=== PATIENT | male | born 1960 | race Caucasian/White ===

== ENCOUNTER 2022-11-20 06:29 | Observation (INO) ==
--- NOTE | 2022-10-19 10:59 | PAT Medication Instructions ---
Medication Instructions Date of Service October 19, 2022 Home Medications amoxicillin 500 mg tablet 500 mg PO TID hydrochlorothiazide 12.5 mg tablet 12.5 mg PO QAM ibuprofen 800 mg tablet 800 mg PO Q6H PRN irbesartan 300 mg-hydrochlorothiazide 12.5 mg tablet 1 tab PO QAM rosuvastatin 5 mg tablet 5 mg PO QAM ASK your surgeon for instructions ibuprofen 800 mg tablet 800 mg PO Q6H PRN DO NOT take the morning of surgery hydrochlorothiazide 12.5 mg tablet 12.5 mg PO QAM irbesartan 300 mg-hydrochlorothiazide 12.5 mg tablet 1 tab PO QAM Take morning of surgery With a small sip of water, OTHERWISE NOTHING TO EAT OR DRINK AFTER MIDNIGHT: amoxicillin 500 mg tablet 500 mg PO TID rosuvastatin 5 mg tablet 5 mg PO QAM Take evening before surgery amoxicillin 500 mg tablet 500 mg PO TID Other Notes If you have any questions please call us at [phone] or [phone] or [phone] or [phone]
--- NOTE | 2022-10-23 13:26 | Anesthesiology Consultation ---
Date of Service October 23, 2022 Assessment & Plan (1) Encounter for pre-operative examination: - infected tooth: Pt states has completed Rx amoxicillin and states he notified surgeon's office. - Outpatient joint assessment: Patient is currently scheduled for inpatient pathway. If re-evaluated pending system levels during current pandemic/surgeon requests outpatient pathway, patient is not acceptable candidate for outpatient joint program from anesthesia standpoint. Chart Review Chart Review: Acceptable Risk for Surgery and Patient seen in Pre Admission Testing Teaching & Discussion Pre-Anesthesia Teaching/Discussion Notes: Instructed NPO after midnight before surgery, except medications with 15 cc of water. Medication instructions provided according to the PAT guidelines. History Surgery Operation Date: 11/20/22 09:35 Proposed Procedures p Left Total Knee Arthroplasty with Possible Short Tibial Stem - Tom Barber DO Height/Weight Height: 6 ft 1 in Weight: 154.221 kg Allergies Allergy/AdvReac Type Severity Reaction Status Date / Time sulfamethoxazole Allergy Rash Verified 10/18/22 16:05 [From Bactrim] trimethoprim [From Bactrim] Allergy Rash Verified 10/18/22 16:05 Medications Home Medications Medication Instructions Recorded Confirmed Last Taken hydrochlorothiazide 12.5 mg tablet 12.5 mg PO QAM 10/18/22 10/18/22 Unknown ibuprofen 800 mg tablet 800 mg PO Q6H PRN Pain 10/18/22 10/18/22 Unknown irbesartan 300 1 tab PO QAM 10/18/22 10/18/22 Unknown mg-hydrochlorothiazide 12.5 mg tablet rosuvastatin 5 mg tablet 5 mg PO QAM 10/18/22 10/18/22 Unknown Past Medical History Medical History (Updated 10/23/22 @ 13:40 by Lisy Silva PA-C) GERD (gastroesophageal reflux disease) rare, if eats late History of prostate cancer dx'd 2015. sx + radiation HLD (hyperlipidemia) HTN (hypertension) controlled, stable per pt Infected tooth reason for abx Morbid obesity with BMI of 40.0-44.9, adult Patient denies h/o stroke, seizures, heart attack, heart failure, DM, blood clots or blood transfusions. Exercise / Class Metabolic Activity II 4-5 Yardwork/Stairs/Walk up hill (denies chest discomfort or shortness of breath with 1 FOS) Past Family History Family History Other No family history of adverse response to anesthesia Past Surgical History Surgical History History of colonoscopy History of hydrocelectomy History of prostate biopsy History of prostatectomy History of umbilical hernia repair History of wisdom tooth extraction Past Anesthesia History No Hx of Anesthesia Complications and No Family Hx of Anesthesia Complications History of PONV No Hx of Motion Sickness and History of PONV (denies needing scop patch) Social History Smoking Status: Never smoker Do You Dip or Chew Tobacco: No Hx Alcohol Use: Yes alcohol intake frequency: a few times a month Hx Substance Use: No substance use type: does not use Review of Systems Snoring, denies witnessed apneas. Patient denies chest pain, shortness of breath, dyspnea on exertion, snoring, witnessed apneas, fever, chills, cough, wheezing, or palpitations. Physical Exam Vital Signs Vitals BP 159/79 P 57 TEMP 98.2 SP02 94% on RA RESP 18 Physical Full cervical extension range of motion without pain TMD 3.5 finger breadths Mallampati Score 2 Dentition: intact, denies chipped or loose teeth, caps/crowns, implants or bridges Lungs: normal respiratory effort. Clear throughout to auscultation, no adventitious breath sounds Cardiac: regular rate and rhythm, no murmurs noted Carotid arteries: negative bruit bilat Lab Results Anesthesia Preop Results Results Anesthesia Widget: WBC 6.25 K/ul (4.8-10.8) 10/23/22 Hgb 13.3 g/dl (14.0-18.0) L 10/23/22 Hct 37.8 % (40.1-51.0) L 10/23/22 Plt 224 K/uL (130-400) 10/23/22 Na 138 mmol/L (136-145) 10/23/22 K 3.8 mmol/L (3.5-5.1) 10/23/22 Cl 101 mmol/L (98-107) 10/23/22 CO2 32 mmol/L (21-32) 10/23/22 BUN 19 mg/dl (6-23) 10/23/22 Creat 0.94 mg/dl (0.6-1.4) 10/23/22 Glucose Level 119 mg/dl (70-99(Fasting)) H 10/23/22 PT 10.9 Seconds (9.0-12.0) 10/23/22 PTT 27.5 Seconds (21.0-31.0) 10/23/22 INR 1.0 (0.9-1.1) 10/23/22 HA1c 5.3 % (4.5-5.6) 10/23/22 Urine Color Yellow 10/23/22 Urine Appearance Clear (Clear) 10/23/22 Urine pH 5.5 (4.5-7.5) 10/23/22 Urine Specific Niland 1.017 (1.000-1.030) 10/23/22 Urine Protein Negative (Negative) 10/23/22 Urine Glucose (UA) Negative (Negative) 10/23/22 Urine Ketones Negative (Negative) 10/23/22 Urine Blood Negative (Negative) 10/23/22 Urine Nitrite Negative (Negative) 10/23/22 Urine Bilirubin Negative (Negative) 10/23/22 Urine Urobilinogen Negative (Negative) 10/23/22 Urine Leukocyte Esterase Negative (Negative) 10/23/22 Blood Type A Negative 10/23/22 Antibody Screen NEGATIVE 10/23/22 Testing Electrocardiogram Date: 10/23/22 Sinus bradycardia, rate 58 bpm Inferior infarct, age undetermined Chest X-Ray Date: 10/23/22 No acute chest disease. COVID-19 Risk Screen Screening Information COVID-19 Screen Date: 10/23/22 Exposure 21 Days Family/Household +COVID Last 21 Days: No Exposure 10 Days Any COVID Exposure Last 10 Days: No Symptoms Last 10 Days Experienced COVID Sx Last 10 Days: No + COVID 0-90 Days COVID + in Last 0-90 Days: No
--- NOTE | 2022-10-29 08:54 | History & Physical Report ---
Date of Service October 29, 2022 date of surgery: 11/20/22 Procedure: Left Total Knee Arthroplasty with Possible Short Tibial Stem Surgeon: Tom Barber Assessment & Plan (1) Arthritis of knee, left: Plan: Presents for evaluation of chronic bilateral knee pain, left greater than right. He has tried and failed prior viscosupplementation injections into his left knee, he is also tried oral anti-inflammatories and Tylenol. X-rays show advanced degenerative changes to the left knee. We discussed treatment options, His pain is now affecting his daily activities and like to proceed with surgical invention. Plan will be patient matched left total knee replacement with possible tibial stem at the hospital with overnight stay. Will place on aspirin 81 mg twice a day for 1 month postop. The risks and benefits have been discussed including, but not limited to, risk of infection, nerve injury, stiffness, loss of motion, failure to improve, etc. Reasonable outcomes and options of treatment were discussed. An explanation of appropriate alternatives to the procedure that may be advantageous were discussed and their risks and benefits, as well as the risks and benefits of not proceeding with treatment. I offered to answer any additional inquiries concerning the treatment involved. All the patient's questions were answered. The patient is agreeable, understanding of the treatment plan and alternatives, and wishes to proceed with the treatment plan. History of Present Illness Chief Complaint: left knee pain Primary Care Provider: Portillo Conteh MD Jason is a 62-year-old male presents for preop evaluation prior to his left total knee replacement. He has been having pain in that knee for many years now which is gradually worsened. he has complaints of pain, swelling and stiffness, He has tried and failed prior injections including corticosteroids and viscosupplementation without relief. He has tried oral anti-inflammatories and Tylenol as well. He rates his current pain as a 7 out of 10. At this point time is failed conservative measures and would like to proceed with surgical intervention Allergies Allergy/AdvReac Type Severity Reaction Status Date / Time sulfamethoxazole Allergy Rash Verified 10/18/22 16:05 [From Bactrim] trimethoprim [From Bactrim] Allergy Rash Verified 10/18/22 16:05 Home Medications Medication Instructions Recorded Confirmed Type hydrochlorothiazide 12.5 mg tablet 12.5 mg PO QAM 10/18/22 10/18/22 History ibuprofen 800 mg tablet 800 mg PO Q6H PRN Pain 10/18/22 10/18/22 History irbesartan 300 1 tab PO QAM 10/18/22 10/18/22 History mg-hydrochlorothiazide 12.5 mg tablet rosuvastatin 5 mg tablet 5 mg PO QAM 10/18/22 10/18/22 History Past Med/Surg History Medical History GERD (gastroesophageal reflux disease) rare, if eats late History of prostate cancer dx'd 2016. 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 Beliefs That Will Affect Care: None Current Living Situation: Spouse Feels Safe at Home: Yes Assistive Devices: Glasses Review of Systems Review of Systems: All systems reviewed & are unremarkable except as noted in HPI & below Constitutional: no fever, no chills and no sweats Respiratory: no cough and no dyspnea Cardiovascular: no chest pain, no dyspnea and no orthopnea Gastrointestinal: no abdominal pain, no nausea and no vomiting Musculoskeletal: as per Subjective / HPI Physical Exam Physical Exam: HT: 6ft 1in WT: 154.2kg Constitutional: WD/WN, vitals as above no acute distress Respiratory: normal respiratory effort, lungs clear to auscultation no respiratory distress, no labored breathing and does not use accessory muscles Cardiovascular: RRR, no murmur, no edema Gastrointestinal (Abdomen): normal bowel sounds, soft, nontender, no hepatosplenomegaly Musculoskeletal: Knee: + knee abnormal to inspection (Left Knee: ), + effusion (+1 effusion), + limited ROM of knee (ROM 0/3/110), + knee ROM with crepitation, + joint line tenderness (medial joint line) and + Edith's sign positive; no deformity, no skin erythema, no ecchymosis, no valgus laxity, no varus laxity, anterior drawer test negative, Maggie's sign negative and pivot shift test negative Results & Data Results & Data ([facility]) Diagnostic Findings 4 views left knee showing advanced DJD of the left knee, bone on bone changes, narrowing medial compartment an PF joint with osteophyte formation and subchondral sclerosis. no acute bony pathology noted. Assessment: DJD of the left knee
[~2022-11-20 06:29] MED LIST: ACETAMINOPHEN 500 MG TAB PO SCH; BUPIVACAINE 0.5 % 5 MG/1 ML PF 10ML VIAL ONE; CeleBREX 200 MG CAP PO SCH; FAMOTIDINE 20 MG TAB PO SCH; GABAPENTIN 600 MG DOSE PO SCH; LR 500ML BOLUS, THEN 15ML/HR IV SCH; METOCLOPRAMIDE HCL 10 MG TABLET PO SCH; ROPIVACAINE 0.5% 5 MG/ML 30 ML VIAL ONE; ROPIVACAINE 0.5% HCL/PF 150 MG, BUPIVACAINE 0.75% MPF 20 ML, EPINEPHrine 30MG/30ML (OR ... INSTIL SCH; TRANEXAMIC ACID 1,000 MG **IV Intra-op IV SCH; TRANEXAMIC ACID 1,000 MG **IV Pre-op IV SCH; dexAMETHasone 4 MG TAB PO SCH
[2022-11-20] MEDS ORDERED: MIDAZOLAM HCL 1 MG/ML 2ML VIAL ONE (06:56)
[2022-11-20] MEDS ORDERED: KETAMINE 50 MG/5 ML SYRINGE ONE (06:57)
--- NOTE | 2022-11-20 07:05 | History & Physical Bridge Note ---
Date of Service November 20, 2022 History & Physical Bridge Note I have examined the patient, reviewed the History & Physical and in the interval since the performance of the History & Physical I have noted the following changes of clinical significance: no changes noted
[2022-11-20] MEDS ORDERED: ORTHO JOINT ANESTHETIC ONE (07:23)
[2022-11-20] MEDS ORDERED: ONDANSETRON INJ 2 MG/ML 2 ML VIAL IV PRN ×2 (07:37→12:18)
[2022-11-20] MEDS ORDERED: fentaNYL citrate 100 MCG/2 ML VIAL IV PRN (07:37)
[2022-11-20] MEDS ORDERED: ePHEDrine sulfate 50 MG/ML AMP IV PRN (07:37)
[2022-11-20] MEDS ORDERED: ATROPINE SULFATE 0.1 MG/ML 10ML SYR IV PRN (07:37)
[2022-11-20] MEDS ORDERED: LIDOCAINE 2% MPF LOCAL 5 ML VIAL INFIL ONE (08:44)
[2022-11-20] MEDS ORDERED: PROPOFOL IV EMULSION 10 MG/ML 100 ML VIAL IV ONE (08:44)
[2022-11-20] MEDS ORDERED: ONDANSETRON INJ 2 MG/ML 2 ML VIAL ONE (08:44)
[2022-11-20] MEDS ORDERED: GLYCOPYRROLATE 0.2 MG/ML VIAL ONE (08:44)
[2022-11-20] MEDS ORDERED: PHENYLEPHRINE HCL 10 MG/ML VIAL ONE (09:13)
--- NOTE | 2022-11-20 10:01 | Operative Report ---
Post Operative Report Pre & Post Diagnosis Operation Date: 11/20/22 08:10 Pre-Op Diagnosis: Left Knee Osteoarthritis Post-Op Diagnosis: Left Knee Osteoarthritis I identified the patient and participated in the time-out.: Yes Procedure Operation Date: 11/20/22 08:10 Actual Procedures p Left Total Knee Arthroplasty with Possible Short Tibial Stem(Lef utilizing [employer] journey 2 patient matched femur 8 tibia 7 insert 13 patella 35 oval stem 1 tibia 10 x 70- Tom Barber DO Surgeon Tom Barber DO Patient Financial Representative ELLEN Oquendo Estimated Blood Loss 5 Findings Consistent with Post-Op Diagnosis Patient presents with severe end-stage tricompartmental DJD 7 degree flexion contracture varus alignment subchondral sclerosis marginal osteophytes eburnated [id number] with a large effusion Specimens Bone and cartilage Drains Medium bore Hemovac Anesthesia Type MAC Spinal Regional Complications none Disposition Accompanied Patient To Recovery: No Disposition: Recovery Room Indications Patient presents with severe end-stage tricompartmental degenerative joint disease nonresponse to conservative management the above intraoperative findings were noted patient failed attempted corticosteroid injection viscosupplementation relative rest activity modification. Description of Procedure After proper prepping and draping of the left lower extremity anterior midline incision was made over the region of the extensor extensor mechanism after meticulous hemostasis was obtained and maintained in subcutaneous tissues a medial parapatellar incision was made The patella was subluxed lateralward the medial lateral gutter were cleaned from any hypertrophic synovitis and scar tissue of the distal femoral block was placed and the distal femoral osteotomy cut was made subsequently the chamfers anterior and posterior osteotomy cuts were made utilizing the 4-in-1 block the tibia was subsequently subluxed anteriorward medial and ateral meniscal remnants were excised in their entirety remnants of the anterior and posterior cruciate ligaments were excised in their entirety excellent exposure of the proximal tibia was obtained the tibial osteotomy guide was placed on the proximal tibial osteotomy cut was made once again the knee was irrigated with copious amounts of sterile saline solution the patella was subsequently everted lateralward thickened scar tissue around the patella was removed the patella was subsequently cut utilizing a freehand technique and was drilled prepared for final preparation and placement of patella socially flexion-extension gaps were checked and the equal and symmetric trials were placed to the appropriate femoral and tibial trials with poly-spacer being placed for equal flexion and extension gaps and full range of motion including extension to 0 and flexion to 140 the trial components after having been taken to recovery range of motion was subsequently removed meticulous hemostasis was obtained and maintained subsequently a knee block injection of joint cocktail including ropivacaine 0.5% 150 mg. Bupivacaine 0.5% epinephrine 1-200,030 mL's toradol 30 mg dexamethasone 4 mg ketamine 10 mg clonidine 100 micrograms normal saline solution 30 mg was infiltrated into the soft tissues of the posterior knee medial lateral gutters and periosteal synovium special attention was paid to protect neurovascular structures at all times subsequently trial components having been removed the knee was irrigated with sterile saline solution. debris was removed the proximal tibia was subsequently prepared and was made ready for the placement of the tibial component tibial component was also cemented and tamped into position the femoral component was subsequently placed and cemented in the position the patellar component was subsequently cemented in position because hemostasis once again obtained and maintained wound having been thoroughly irrigated with debridement and debridement lavage was performed as well as a medial parapatellar incision closed with #1 Vicryl in interrupted fashion subcutaneous was closed with #2 Vicryl skin was closed with skin clips. PA-C was necessary for prepping and drapping as well as wound closure of deep fascia Sub cutaneous tissue and skin and was necessary for the case. A sterile compressive dressing was placed patient was taken to recovery in stable condition of report dictated by Sunil I attest to the content of the Intraoperative Record and any orders documented therein. Any exceptions are noted below.Due to the complex nature of the procedure, the entire surgery was performed with the operational assistance of ELLEN Oquendo. The marketing administrative assistant, under direct supervision, was involved in the actual performance of all aspects of the surgical procedure including hemostasis, tissue retraction and incision, instrument management, patient positioning, and wound closure. I attest to the content of the Intraoperative Record and any orders documented therein. Any exceptions are noted below.
--- NOTE | 2022-11-20 11:12 | XRay Report ---
XR knee LT 1 or 2V routine CLINICAL HISTORY: Surgical Post Op COMPARISON: None FINDINGS: Alignment of the total left knee arthroplasty is anatomic. There is no periprosthetic frac ture or unexpected radiopaque foreign body. There are surgical drains. Incidental 1.5 cm linear radio density within the medial left lower leg is present. This is likely old. IMPRESSION: Expected findings following total left knee arthroplasty. ACT 112: Negative or not required by law. Electronically signed by: Abraham Blackwell M.D. 11/20/2022 11:11 AMa
[2022-11-20] MEDS ORDERED: MAGNESIUM HYDROXIDE SUSP 30 ML UDC PO PRN (12:18)
[2022-11-20] MEDS ORDERED: HYDROmorphone INJ 1 MG/ML SYRINGE IV PRN (12:18)
[2022-11-20] MEDS ORDERED: diphenhydrAMINE Capsule 25 MG CAP PO PRN (12:18)
[2022-11-20] MEDS ORDERED: bisacodyL 10 MG SUPP PR PRN (12:18)
[2022-11-20] MEDS ORDERED: NALOXONE HCL 0.4 MG/1 ML VIAL/CARP IV PRN (12:18)
[2022-11-20] MEDS ORDERED: SODIUM CHLORIDE 0.9% 1000ML 1,000 ML IV SCH (12:18)
[2022-11-20] MEDS ORDERED: METOCLOPRAMIDE HCL INJ 5 MG/ML 2 ML VIAL IV PRN (12:18)
[2022-11-20] MEDS ORDERED: oxyCODONE HCL IR 5 MG TAB (IMMEDIATE RELEASE) PO PRN (12:18)
[2022-11-20] MEDS: ACETAMINOPHEN 500 MG TAB PO SCH ×2 (13:27→20:18)
--- NOTE | 2022-11-20 14:00 | Anesthesiology Progress Note ---
Date of Service November 20, 2022 Anesthesia Post Procedure Vital Signs Vital Signs: Temp Pulse Resp BP Pulse Ox O2 Del Method O2 Flow Rate 11/20/22 13:15 98.1 F 64 18 137/84 93 Room Air 11/20/22 12:45 97.7 F 52 L 16 123/80 94 Room Air 11/20/22 12:15 97.7 F 65 16 133/84 95 Room Air 11/20/22 11:45 58 L 18 120/74 95 Nasal Cannula 2 11/20/22 11:35 97.2 F L 58 L 16 120/76 95 Nasal Cannula 2 11/20/22 11:25 55 L 15 120/69 95 Nasal Cannula 2 11/20/22 11:15 64 17 121/72 93 Nasal Cannula 2 11/20/22 11:05 69 15 125/71 91 Nasal Cannula 2 11/20/22 10:55 83 18 114/79 95 Nasal Cannula 2 11/20/22 10:45 79 18 121/78 95 Nasal Cannula 2 11/20/22 10:35 81 18 122/72 95 Oxymask 5 11/20/22 10:26 98.4 F 86 18 119/72 95 Oxymask 5 11/20/22 06:52 98.6 F 76 20 156/86 H 95 Room Air Pain Intensity Left Knee: Pain Intensity: 0 Transfer of Care Handoff Completed per policy Notes Mental Status: alert / awake / arousable and participated in evaluation Patient Amnestic to Procedure: Yes Nausea / Vomiting: adequately controlled Pain: adequately controlled Airway Patency, RR, SpO2: stable & adequate BP & HR: stable & adequate Hydration State: stable & adequate Neuraxial Anesthesia: was administered and sensory block is resolving Anesthetic Complications: no major complications apparent and Pt Satisfied with anesthetic care
[2022-11-20] MEDS: KETOROLAC 30 MG/ML VIAL IV SCH (17:53)
[2022-11-20] MEDS: ceFAZolin 2000MG 2,000 MG/15 ML SYR IV SCH (17:53)
[2022-11-20] MEDS: ASPIRIN 81 MG ECTAB PO SCH (20:17)
[2022-11-20] MEDS: DOCUSATE SODIUM 100 MG CAP PO SCH (20:17)
[2022-11-20] MEDS ORDERED: SENNA 8.6 MG TAB PO SCH (21:00)
[2022-11-21] MEDS: ceFAZolin 2000MG 2,000 MG/15 ML SYR IV SCH (00:06)
[2022-11-21] MEDS: KETOROLAC 30 MG/ML VIAL IV SCH ×2 (00:06→06:03)
[2022-11-21] MEDS: ACETAMINOPHEN 500 MG TAB PO SCH (06:03)
[2022-11-21 06:06] LABS: Hematocrit (blood only) 34.3 % (42.0-52.0); Hemoglobin 11.9 g/dl (14.0-18.0); Mean Corpuscular Hemoglobin 30.9 pg (25.0-34.0); Mean Corpuscular Hgb Conc 34.7 g/dL (32.0-36.0); Mean Corpuscular Volume 89.1 fL (80.0-100.0); Mean Platelet Volume 9.3 fL (9.4-12.4); Platelet Count 241 K/uL (130-400); RDW Coefficient of Variation 11.7 % (11.5-14.5); RDW Standard Deviation 37.2 fL (36.4-46.3); Red Blood Count 3.85 M/uL (4.70-6.10); White Blood Count 13.76 K/ul (4.8-10.8)
[2022-11-21 06:08] LABS: BUN Creatinine Ratio 23.9 (10-20); Calcium 8.8 mg/dl (8.5-10.1); Creatinine Clr Calc Pharmacy 101.8 ml/min; Est GFR (Non-African American) 66.4 ml/min; Potassium 4.5 mmol/L (3.5-5.1)
[2022-11-21] MEDS: ASPIRIN 81 MG ECTAB PO SCH (08:52)
[2022-11-21] MEDS: DOCUSATE SODIUM 100 MG CAP PO SCH (08:53)
[2022-11-21] MEDS ORDERED: LOSARTAN POTASSIUM 50 MG TAB PO SCH (09:00)
[2022-11-21] MEDS ORDERED: MULTIVITAMIN TAB PO SCH (09:00)
[2022-11-21] MEDS ORDERED: hydroCHLOROthiazide 25 MG TAB PO SCH ×3 (09:00)
[2022-11-21] MEDS ORDERED: ROSUVASTATIN CALCIUM 5 MG TAB PO SCH (09:00)
--- NOTE | 2022-11-21 10:07 | Orthopedic Progress Note ---
Date of Service November 21, 2022 Assessment & Plan (1) Arthritis of knee, left: Plan: Postop day 1 status post left total knee arthroplasty. PT/OT protocols. Weightbearing as tolerated. DVT prophylaxis-aspirin p.o. twice daily, SCDs, HILTON thomas. Pain management is written DC planning-patient is planning for home health services upon discharge. Plan for discharge to home today if he is progressing in his physical therapy. We will plan to have home health remove the dressing at home tomorrow secondary to mildly increased drainage from his Hemovac. Admission and Anticipated Discharge Date Admission Date: November 20, 2022 Subjective Postop day 1 Patient sitting in his chair at the bedside finishing his breakfast. Awake and alert. Denies shortness of breath, chest pain, lightheadedness. His pain is controlled. He has no complaints this morning. He is hoping to go home Physical Exam Physical Exam: Dressings are clean, dry, and intact. Calves are soft nontender. Neurovascular intact. Toes are mobile. He has good dorsiflexion and plantarflexion of the left foot. Hemovac drainage was 200 mL from the previous shift Results & Data ([facility]) Vital Signs (Past 12 Hours) Vital Signs Temp Pulse Resp BP BP Pulse Ox O2 Del Method 11/21/22 08:47 37.0 C 62 18 127/77 94 Room Air 11/21/22 03:30 36.3 C L 72 16 114/69 93 Room Air 11/20/22 22:06 36.3 C L 62 16 166/90 H 94 Room Air Laboratory Results Laboratory Results WBC 13.76 K/ul (4.8-10.8) H 11/21/22 05:35 RBC 3.85 M/uL (4.70-6.10) L 11/21/22 05:35 Hgb 11.9 g/dl (14.0-18.0) L 11/21/22 05:35 Hct 34.3 % (42.0-52.0) L 11/21/22 05:35 MCV 89.1 fL (80.0-100.0) 11/21/22 05:35 MCH 30.9 pg (25.0-34.0) 11/21/22 05:35 MCHC 34.7 g/dL (32.0-36.0) 11/21/22 05:35 RDW Std Deviation 37.2 fL (36.4-46.3) 11/21/22 05:35 RDW Coeff of Tana 11.7 % (11.5-14.5) 11/21/22 05:35 Plt Count 241 K/uL (130-400) 11/21/22 05:35 MPV 9.3 fL (9.4-12.4) L 11/21/22 05:35 Sodium 135 mmol/L (136-145) L 11/21/22 05:35 Potassium 4.5 mmol/L (3.5-5.1) 11/21/22 05:35 Chloride 101 mmol/L (98-107) 11/21/22 05:35 Carbon Dioxide 27 mmol/L (21-32) 11/21/22 05:35 Anion Gap 7 (3-11) 11/21/22 05:35 BUN 28 mg/dl (6-23) H 11/21/22 05:35 Creatinine 1.17 mg/dl (0.6-1.4) 11/21/22 05:35 Est Cr Clr Drug Dosing 101.8 ml/min 11/21/22 05:35 Est GFR ( Amer) 77.0 ml/min 11/21/22 05:35 Est GFR (Non-Af Amer) 66.4 ml/min 11/21/22 05:35 BUN/Creatinine Ratio 23.9 (10-20) H 11/21/22 05:35 Glucose 134 mg/dl (70-99(Fasting)) H 11/21/22 05:35 Calcium 8.8 mg/dl (8.5-10.1) 11/21/22 05:35 SARS-CoV-2, RNA, NAAT NEGATIVE (NEGATIVE) 11/20/22 Unknown Impressions Knee X-Ray 11/20/22 10:31 XR knee LT 1 or 2V routine CLINICAL HISTORY: Surgical Post Op COMPARISON: None FINDINGS: Alignment of the total left knee arthroplasty is anatomic. There is no periprosthetic fracture or unexpected radiopaque foreign body. There are surgical drains. Incidental 1.5 cm linear radiodensity within the medial left lower leg is present. This is likely old. IMPRESSION: Expected findings following total left knee arthroplasty. ACT 112: Negative or not required by law. Electronically signed by: Abraham Blackwell M.D. 11/20/2022 11:11 AMa
--- NOTE | 2022-11-21 13:02 | Discharge Summary ---
Date of Service date of discharge: November 21, 2022 date of admission: 11/20/22 Admission HPI Per Admitting Provider Jason is a 62-year-old male presents for preop evaluation prior to his left total knee replacement. He has been having pain in that knee for many years now which is gradually worsened. he has complaints of pain, swelling and stiffness, He has tried and failed prior injections including corticosteroids and viscosupplementation without relief. He has tried oral anti-inflammatories and Tylenol as well. He rates his current pain as a 7 out of 10. At this point time is failed conservative measures and would like to proceed with surgical intervention Principal Diagnosis left knee arthritis Discharge Exam Constitutional WD/WN, vitals as above Musculoskeletal left knee: NVDI, calf SNT, negative doc sign. DP palpable, able to wiggle toes/ankle movement without difficulty. JAY dressing clean dry and intact. expe cted post-operative bruising noted. Discharge Data Allergies Allergy/AdvReac Type Severity Reaction Status Date / Time sulfamethoxazole Allergy Rash Verified 11/20/22 06:51 [From Bactrim] trimethoprim [From Bactrim] Allergy Rash Verified 11/20/22 06:51 Procedures Performed Operation Date: 11/20/22 08:10 Actual Procedures p Left Total Knee Arthroplasty with Short Tibial Stem(Left) - Tom Barber DO Ordered Studies 11/20/22 05:00 US - OR guided needle placemen Routine Hospital Course (1) Arthritis of knee, left: Postop day 1 status post left total knee arthroplasty. PT/OT protocols. Weightbearing as tolerated. DVT prophylaxis-aspirin p.o. twice daily, SCDs, HILTON thomas. Pain management is written DC planning-patient is planning for home health services upon discharge. Plan for discharge to home today if he is progressing in his physical therapy. We will plan to have home health remove the dressing at home tomorrow secondary to mildly increased drainage from his Hemovac. Total Time Total Time Spent Total Time Spent (In Minutes): 20 Discharge Plan Discharge Items Patient Disposition: Home - Home Health Services Reason For Visit: Left Knee Osteoarthritis Discharge Diagnosis: left total knee replacement Activity: Per Instructions section Weightbearing: Left weightbearing Weightbearing Comment: WBAT with walker Non-emergency contact: Surgeon Call non-emergency contact if: you have any medication questions, your temperature is above 101, your wound has increased redness, your wound has increased drainage and your wound pain has increased Follow-up/Referrals: Tom Barber DO [Surgeon] - (Follow-up with Dr. Barber or his PA a in 2 weeks from the day of your surgery for your first postoperative visit) Portillo Conteh MD [Primary Care Provider] - Diet: Regular Addtl Attending Provider Instructions: ACTIVITY RECOMMENDATIONS: SELF CARE INSTRUCTIONS AFTER TOTAL KNEE REPLACEMENT A. You may need to continue a physical therapy program after discharge from the hospital. There are several options available to you. Your doctor will assist you in selecting the best one for you. 1. An out-patient facility 2 to 3 times a week for therapy or home therapy. 2. Continue working on all exercises taught to you in the hospital. Your goals should be to increase bending of your knee to 90 degrees and beyond and to fully straighten your knee. B. You may progress at your own pace from walking with a walker or crutches to a cane; then to no assistive devices. C. Make walking a part of your daily routine. Be up as much as comfortable with rest periods throughout the day. Rest with leg elevation is very important. Use the ice wrap frequently for the first 3-4 weeks. D. There are no restrictions on activities. You may ride in a car, shop, participate in hydraulic tester and all social activities. E. Wear the long elastic stockings (HILTON hose) 20 hours a day for 2 weeks after surgery. They can be removed several times a day for laundering and for a bath. F. You may shower, no tub baths until cleared by your doctor. SPECIAL CARE INSTRUCTIONS: VERY IMPORTANT TO READ AND REVIEW A. There are a few signs you need to watch for after you are home. Call [facility] if you notice any of the followin. Increased severe knee pain. Some pain is expected especially when you exercise. 2. Increased swelling in your leg or knee; pain or swelling of the calf muscle in either lower leg. 3. Any fluid drainage from the incision. 4. Shortness of breath or chest pain. B. Please call [facility] at if you have any concerns or questions about your operation or recovery. The doctor or his nurse will return your call promptly. C. You must take antibiotics before dental work, bladder, bowel or other surgery. Your doctor will provide you with a permanent care to carry describing this precaution. IMPORTANT: * REMEMBER TO TAKE ASPIRIN, 81 MG, TWICE DAILY FOR 4 WEEKS UNLESS OTHERWISE DIRECTED. THIS IS YOUR BLOOD THINNER. * HIGH RISK PATIENTS MAY BE PRESCRIBED A STRONGER BLOOD THINNER. THIS WILL BE PROVIDED AT DISCHARGE. * CALL IF INCREASED PAIN, REDNESS, DRAINAGE OR FEVER GREATER THAT 101. * WEAR HILTON HOSE 20 HOURS PER DAY FOR 2 WEEKS. * DRESSING INSTRUCTIONS * JAY Dressing- This is a large suction dressing covering your incision. This will help pull any excess drainage from the wound and allow your incision to heal properly. You may shower with this if you can keep the unit outside of the shower. If any bleeding or leakage is noted please call your doctor's office. This will remain on your incision for 7 days and then should be removed. This can be done yourself or by the home nursing staff if applicable. The entire unit is disposable once removed. Once removed, keep incision clean and dry. If redness or drainage is noted, please call your surgeon. ONCE JAY IS REMOVED, FOLLOW THESE INSTRUCTIONS: DERMABOND Prineo- This is a mesh tape dressing that is covered with glue. It should remain in place until the incision is properly healed, usually 10-14 days. This dressing is designed to naturally slough off. You may trim the excess mesh tape as it peels off. Incision may be briefly wet in a shower. Dry immediately by blotting with a clean, dry towel. Do not bath or swim until instructed by your doctor. Do not scratch, rub, or pick at the dressing. Do not apply any topical ointments or lotions until dressing is completely removed and/or instructed by your doctor. There may be a small piece of suture material at one end of your incision. Do not pull or trim this. If it is bothersome or catching on clothing, you may cover it with a band-aid. IF INCISION IS LEAKING THROUGH DRESSING, CALL THE OFFICE . FOLLOW UP VISIT: If appointment is not already scheduled: Please call [facility] to make a follow-up appointment for 2 weeks after your surgery at . Stand-Alone Forms: My [facility] [employer], Smoking Cessation Medications and DC Order Prescriptions: New acetaminophen [Tylenol Extra Strength] 500 mg Tablet 1,000 mg PO Q8 14 Days Qty: 84 0RF aspirin 81 mg Tablet,Delayed Release (Dr/Ec) 81 mg PO BID 30 Days Qty: 60 0RF polyethylene glycol 3350 [Miralax] 17 gram powder in packet 17 g PO DAILY PRN (Reason: constipation) 14 Days Qty: 5 0RF cefadroxil 500 mg capsule 500 mg PO BID Qty: 28 1RF oxycodone 5 mg tablet 5 mg PO Q4H MDD 6 PRN (Reason: pain) Qty: 30 0RF Continued irbesartan-hydrochlorothiazide 300-12.5 mg Tablet 1 tab PO QAM rosuvastatin 5 mg Tablet 5 mg PO QAM hydrochlorothiazide 12.5 mg Tablet 12.5 mg PO QAM Discontinued ibuprofen 800 mg Tablet 800 mg PO Q6H PRN (Reason: Pain) Krames/Other Patient Handouts: Knee Osteoarthritis Admission Data Admit Date/Time: 11/20/22 10:31 Attending Provider: Tom Barber Admit Provider: Tom Barber Primary Care Provider: Portillo Conteh Other Providers: [place],Home Health Other Interventions: Discharge Summary Assessment (RN) Last Done: 11/21/22 10:39
== END 2022-11-21 12:43 | disposition home health service (06) ==
LOC: ASU 06:29 → 3E 06:29